=== PATIENT | male | born 1945 | race Asian ===

== ENCOUNTER 2020-02-05 14:59 | Emergency (ER) | payer OTHER ==
[~2020-02-05] VITALS: Ht 170.2 cm; Wt 86.2 kg
[2020-02-05 15:08] VITALS: Ht 170.2 cm; Wt 86.2 kg
[2020-02-05 18:09] VITALS: BP 130/85
== END 2020-02-05 18:09 | disposition home or self-care (01) ==
LOC: ED 14:59
DX: S61.412A Laceration without foreign body of left hand, initial encounter (principal); S61.011A Laceration without foreign body of right thumb without damage to nail, initial encounter; S61.210A Laceration without foreign body of right index finger without damage to nail, initial encounter; S61.212A Laceration without foreign body of right middle finger without damage to nail, initial encounter; I10 Essential (primary) hypertension; E11.9 Type 2 diabetes mellitus without complications; W07.XXXA Fall from chair, initial encounter; Y93.89 Activity, other specified; Y92.89 Other specified places as the place of occurrence of the external cause; Y99.8 Other external cause status
CPT/HCPCS: 90715; J2001

== ENCOUNTER 2020-02-07 13:51 | Emergency (ER) | payer OTHER, BC ==
[~2020-02-07] VITALS: Ht 170.2 cm; Wt 84.8 kg
[2020-02-07 14:18] VITALS: BP 133/74; Ht 170.2 cm; Wt 84.8 kg
== END 2020-02-07 15:34 | disposition home or self-care (01) ==
LOC: ED 13:51
DX: S61.411D Laceration without foreign body of right hand, subsequent encounter (principal); E11.9 Type 2 diabetes mellitus without complications; I10 Essential (primary) hypertension; E78.00 Pure hypercholesterolemia, unspecified; E03.9 Hypothyroidism, unspecified; X58.XXXD Exposure to other specified factors, subsequent encounter